=== PATIENT | female | born 1965 | race Caucasian/White ===

== ENCOUNTER 2016-10-17 17:22 | Outpatient (CLI) | payer OTHER ==
[~2016-10-17 17:22] MED LIST: ASPIRIN325 MG PO; CARDIZEM CD PO; CILOSTAZOL100 MG PO; CLONAZEPAM0.5 MG PO; CRESTOR20 MG PO; CYMBALTA30 MG PO; ERYTHROMYCIN250 MG PO; LANTUS SOL100 UNITS/; LOSARTAN POTAS100 MG PO; METOCLOPRAMIDE10 MG PO; NEURONTIN100 MG PO; NORCO1 TA1 PO; NOVOLOG PE100 UNITS/; NOVOLOG PE100 UNITS/ SC; OMEPRAZOLE20 M1 PO; PRAMIPEXOLE D0.25 MG PO; PROAIR HFA IN; VITAMIN D-31000 UNIT PO
== END 2016-10-17 23:00 ==
LOC: LABML S 17:22
DX: E10.49 Type 1 diabetes mellitus with other diabetic neurological complication (principal)
CPT/HCPCS: 90100; 90648; 91286; 92690; 93140; 95059